=== PATIENT | female | born 1950 | race Two or more races ===

== ENCOUNTER → 2018-05-08 | Outpatient (CLI) | payer MEDICARE, OTHER ==
[~2018-05-08] MED LIST: ASPI-650 PO; CYAN50008 PO; LISI1TAB5 PO; NAPR220C2 PO; SENN1TAB67 PO; TURMERIC PO
[2018-05-08 12:16] LABS: BASOPHILS # (AUTO) 0.02 x10^3/uL (0-0.1); BASOPHILS % (AUTO) 0 % (0-1); EOSINOPHILS # (AUTO) 0.19 x10^3/uL (0-0.4); EOSINOPHILS % (AUTO) 2 % (1-7); LYMPHOCYTES # (AUTO) 2.03 x10^3/uL (1-3.4); LYMPHOCYTES % (AUTO) 26 % (22-44); MD NO; MEAN CORPUSCULAR HEMOGLOBIN 31.9 pg (27.0-34.8); MEAN CORPUSCULAR VOLUME 93.8 fL (80-100); MEAN PLATELET VOLUME 7.8 fL (7.4-10.4); MONOCYTES # (AUTO) 0.37 x10^3/uL (0.2-0.8); MONOCYTES % (AUTO) 5 % (2-9); NEUTROPHILS # (AUTO) 5.14 x10^3/uL (1.8-6.8); NEUTROPHILS % (AUTO) 66 % (42-75); PLATELET COUNT 256 x10^3/uL (130-400); RED BLOOD COUNT 4.63 x10^6/uL (3.82-5.3); RED CELL DISTRIBUTION WIDTH 12.7 % (9.6-15.2)
[2018-05-08 12:27] LABS: ALANINE AMINOTRANSFERASE 31 U/L (12-78); ALBUMIN 4.1 g/dL (3.4-5.0); ANION GAP 8 mmol/L (5-15); CALCIUM 8.8 mg/dL (8.5-10.1); CHLORIDE 105 mmol/L (98-107)
[2018-05-08 12:30] LABS: ALKALINE PHOSPHATASE 88 U/L (45-117); BILIRUBIN,TOTAL 0.7 mg/dL (0.2-1.0); CREATININE 0.78 mg/dL (0.55-1.02); TOTAL PROTEIN 8.3 g/dL (6.4-8.2)
[2018-05-08 13:55] LABS: CULTURE INDICATED? NO; MICROSCOPIC NOT IND
== END | disposition home or self-care (01) ==
LOC: STAR 11:03
PROVIDERS: ATTEND Orthopaedic Surgery
DX: Z01.818 Encounter for other preprocedural examination (principal); I51.7 Cardiomegaly; M17.11 Unilateral primary osteoarthritis, right knee; M25.561 Pain in right knee
CPT/HCPCS: 36415; 80053; 81003; 85025; 87081; 93005

== ENCOUNTER 2018-05-13 06:55 | Observation (INO) | payer MEDICARE, OTHER ==
[2018-05-08 11:39] VITALS: BP 120/75
[~2018-05-13] VITALS: Ht 170.2 cm; Wt 64.6 kg
[2018-05-13] MEDS ORDERED: LACTATED RINGERS 1,000 ML IV SCH (07:43)
[2018-05-13] MEDS ORDERED: FENTANYL PF 250 MCG/5ML ONE (08:28)
[2018-05-13] MEDS ORDERED: MIDAZOLAM 1 MG/ML, 2ML ONE (08:28)
[2018-05-13] MEDS ORDERED: GABAPENTIN 300 MG CAPSULE PO ONE (08:30)
[2018-05-13] MEDS ORDERED: ACETAMINOPHEN 500 MG TABLET PO ONE (08:30)
[2018-05-13] MEDS ORDERED: KETOROLAC 60 MG/2 ML ONE (09:31)
[2018-05-13] MEDS ORDERED: TRANEXAMIC ACID 100 MG/ML, 10ML ONE (09:31)
[2018-05-13] MEDS ORDERED: VANCOMYCIN 1,000 MG ONE (09:31)
[2018-05-13] MEDS ORDERED: ROPIvacaine/PF 0.2%, 20 ML ONE (09:31)
[2018-05-13] MEDS ORDERED: EPINEPHRINE 1 MG/ML, 1ML ONE (09:44)
[2018-05-13] MEDS ORDERED: DEXAMETHASONE 4 MG/ML, 1ML ONE (09:52)
[2018-05-13] MEDS ORDERED: PROPOFOL 10 MG/ML, 20ML ONE (09:52)
[2018-05-13] MEDS ORDERED: ONDANSETRON 2MG/ML, 2ML ONE (09:52)
[2018-05-13] MEDS ORDERED: CEFAZOLIN 1,000 MG ONE (09:52)
[2018-05-13] MEDS ORDERED: DIPHENHYDRAMINE 25 MG CAPSULE PO PRN (10:00)
[2018-05-13] MEDS ORDERED: HYDROmorphone 2 MG/ML, 1ML IV PRN (10:00)
[2018-05-13] MEDS ORDERED: DIAZEPAM 5 MG TABLET PO PRN (10:00)
[2018-05-13] MEDS ORDERED: MAGNESIUM HYDROXIDE 8%, 30ML UDC PO PRN (10:00)
[2018-05-13] MEDS ORDERED: ZOLPIDEM 5MG TABLET PO PRN (10:00)
[2018-05-13] MEDS ORDERED: ONDANSETRON 2MG/ML, 2ML IV PRN (10:00)
[2018-05-13] MEDS ORDERED: ONDANSETRON 4 MG TABLET PO PRN (10:00)
[2018-05-13] MEDS ORDERED: SENNA/DOCUSATE TABLET PO PRN (10:00)
[2018-05-13] MEDS ORDERED: BISACODYL 10 MG SUPP PR PRN (10:00)
[2018-05-13] MEDS ORDERED: PROMETHAZINE 25 MG/ML, 1ML IM PRN (10:00)
[2018-05-13] MEDS ORDERED: PROMETHAZINE 12.5 MG SUPP PR PRN (10:00)
[2018-05-13] MEDS ORDERED: ALUMINUM/MAG/SIMETHICONE 30 ML UDC PO PRN (10:00)
[2018-05-13] MEDS ORDERED: ACETAMINOPHEN 650 MG/20.3 ML UDC PO PRN (10:00)
[2018-05-13] MEDS ORDERED: OXYcodone IR 5MG TABLET PO PRN (10:00)
[2018-05-13] MEDS ORDERED: HYDROmorphone 1 MG/ML, 1ML IV PRN (11:30)
[2018-05-13] MEDS ORDERED: FENTANYL PF 100 MCG/2ML IV PRN (11:30)
[2018-05-13] MEDS ORDERED: ALBUTEROL SULFATE 2.5 MG/3 ML NPPB PRN (11:30)
[2018-05-13] MEDS ORDERED: LABETALOL 5MG/ML, 20ML IV PRN (11:30)
[2018-05-13] MEDS ORDERED: OXYcodone 5 MG/5 ML ORAL.SOL UDC PO PRN (11:30)
[2018-05-13] MEDS ORDERED: PROMETHAZINE 25 MG/ML, 1ML IV PRN (11:30)
[2018-05-13] MEDS ORDERED: hydrALAzine 20 MG/ML, 1ML IV PRN (11:30)
[2018-05-13] MEDS ORDERED: HYDROmorphone 2 MG/ML, 1ML ONE (12:26)
[2018-05-13] MEDS ORDERED: TRANEXAMIC ACID 1,000 MG in SODIUM CHLORIDE 0.9% 100 ML IVPB ONE (12:30)
[2018-05-13 13:13] VITALS: BP 120/70
[2018-05-13] MEDS: HYDROcodone/APAP 5/325 TABLET PO PRN ×2 (16:00→21:57)
[2018-05-13] MEDS: CEFAZOLIN PMX 2GM/50ML 50 ML IVPB SCH (16:17)
[2018-05-13] MEDS: D5%-LACTATED RINGERS 1,000 ML IV SCH ×2 (16:20→23:07)
[2018-05-13 19:43] VITALS: BP 119/75
[2018-05-13] MEDS: DOCUSATE 100 MG CAPSULE PO SCH (21:08)
[2018-05-14 00:11] VITALS: BP 113/69
[2018-05-14] MEDS: CEFAZOLIN PMX 2GM/50ML 50 ML IVPB SCH (00:24)
[2018-05-14 04:07] VITALS: BP 123/74
[2018-05-14] MEDS ORDERED: DEXAMETHASONE 4 MG/ML, 1ML IVPush SCH (06:00)
[2018-05-14] MEDS ORDERED: ASPIRIN 81 MG TABLET EC PO SCH (06:00)
[2018-05-14 07:15] VITALS: BP 120/75
[2018-05-14] MEDS: DOCUSATE 100 MG CAPSULE PO SCH (07:56)
[2018-05-14] MEDS ORDERED: HYDR-3653 PO (08:56)
[2018-05-14] MEDS ORDERED: HYDROCHLOROTHIAZIDE 12.5 MG CAPSULE PO SCH (09:00)
[2018-05-14] MEDS ORDERED: LISINOPRIL 20 MG TABLET PO SCH (09:00)
[2018-05-14] MEDS ORDERED: MULTIVITAMINS/MINERALS TABLET PO SCH (09:00)
[2018-05-14] MEDS ORDERED: KETOROLAC 30 MG/1 ML IV SCH (10:00)
[2018-05-14] MEDS: D5%-LACTATED RINGERS 1,000 ML IV SCH (11:10)
[2018-05-14] MEDS: HYDROcodone/APAP 5/325 TABLET PO PRN (12:36)
[2018-05-14 12:48] VITALS: BP 128/79
== END 2018-05-14 13:15 | disposition home or self-care (01) ==
LOC: OUT 06:55 → ORIP 09:52 → 4NOR 12:50 → DCLOUNGE 05-14 12:59
PROVIDERS: ADMIT Orthopaedic Surgery; ATTEND Orthopaedic Surgery
DX: M17.11 Unilateral primary osteoarthritis, right knee (principal); I10 Essential (primary) hypertension; Z87.891 Personal history of nicotine dependence; Z79.82 Long term (current) use of aspirin; Z23 Encounter for immunization
CPT/HCPCS: 27447; 36415; 73560; 85014; 85018; 90471; 90656; 96365; 96366; 96375; 97110; 97116; 97161; 97165; C1713; C1776; G0378; J0171; J0690; J1100; J1170; J1885; J2250; J2405; J2704; J2795; J3010; J7120; J7121; Q0163; J3370